=== PATIENT | male | born 1965 | race Caucasian/White ===

== ENCOUNTER 2019-01-13 00:40 | Emergency (ER) | payer BC ==
[~2019-01-13] VITALS: Ht 177.8 cm; Wt 81.6 kg
--- NOTE | 2019-01-13 00:40 | NUR ---
TO BED 5 AMBULATORY C/O URINARY RETENTION SINCE 1600 S/P INGUINAL HERNIA 01/12/19. PT AAOX4 NO ACUTE DISTRESS NOTED, RESP EVEN AND UNLABORED. ER MD AT BEDSIDE TO EVAL PT WITH ORDERS RECEIVED.
[2019-01-13] MEDS ORDERED: LIDOCAINE 2% JEL UROJET 10 ML MM ONE ×2 (00:58→01:00)
--- NOTE | 2019-01-13 01:09 | NUR ---
F/C 16FR INSERTED, URINE SAMPLE COLLECTED, DRAINED APPROXIMATELY 40ML'S. TOVA NEWTON MADE AWARE.
--- NOTE | 2019-01-13 01:37 | NUR ---
F/C removed per pt request with er md aware. Patient discharged to home in stable condition. Written and verbal after care instructions given. Patient verbalizes understanding of instruction.
[2019-01-13 01:39] VITALS: BP 135/69
== END 2019-01-13 01:39 | disposition home or self-care (01) ==
LOC: ER 00:40
DX: R33.9 Retention of urine, unspecified (principal); F41.9 Anxiety disorder, unspecified
CPT/HCPCS: 51702; 99284; J3490